=== PATIENT | male | born 1955 ===

== ENCOUNTER 2023-03-24 04:29 | Day surgery (SDC) | payer OTHER ==
[2023-03-23 10:27] VITALS: BMI 31.8
[2023-03-24] MEDS ORDERED: ACETAMINOPHEN 1000 MG/100 ML BAG IVPB ONE (14:20)
[2023-03-24] MEDS ORDERED: PROPOFOL 40 ML ONE (14:28)
[2023-03-24] MEDS ORDERED: ceFAZolin SODIUM 1 GM VIAL IVPB ONE (14:37)
[2023-03-24] MEDS ORDERED: LACTATED RINGERS SOLUTION 1,000 ML IV SCH (15:45)
[2023-03-24 17:31] VITALS: RESP 18; TEMP 97
[2023-03-24 18:12] VITALS: BP 110/60; PULSE 70
== END 2023-03-24 18:00 | disposition home or self-care (01) ==
LOC: JASU-SURG 04:29
PROVIDERS: ATTEND Urology
PROC: 0T7D8DZ Dilation of Urethra with Intraluminal Device, Via Natural or Artificial Opening Endoscopic (ICD-10-PCS; principal; 2023-03-24 13:30)
DX: N40.1 Benign prostatic hyperplasia with lower urinary tract symptoms (principal); R39.12 Poor urinary stream
CPT/HCPCS: C9740; L8699; 94760